=== PATIENT | female | born 1995 | race Caucasian/White ===

== ENCOUNTER → 2017-05-02 | Outpatient (CLI) | payer OTHER ==
--- NOTE | 2017-05-03 08:46 | KCIC ---
Renal ultrasound HISTORY: Polycystic kidney disease COMPARISON: None FINDINGS: Multiple sonographic images of the kidneys and urinary bladder are submitted. Right kidney measured 10.3 x 3.8 x 4.3 cm. Left kidney measured 12 x 6.5 x 5.3 cm, no hydronephrosis. No significant cystic lesion is demonstrated of either kidney. Segments of the right kidney are not as well visualized due to attenuation by soft tissues and bowel gas. Urinary bladder morphology is within normal limits. Left ureteral jet is seen in the urinary bladder lumen during exam, right ureteral jet not seen during the exam. IMPRESSION: 1. There is nonspecific asymmetric enlargement of the left kidney compared with the right, no hydronephrosis. However the right kidney is not as well-visualized in its entirety due to bowel gas and attenuation by soft tissues. Electronically signed by: Josef Barnett MD (05/03/2017 8:43 AM)
== END | disposition home or self-care (01) ==
LOC: KCIC US 14:56
PROVIDERS: ATTEND Family Medicine
DX: Q61.3 Polycystic kidney, unspecified (principal)
CPT/HCPCS: 76770

== ENCOUNTER → 2018-06-12 | Outpatient (CLI) | payer OTHER | END | disposition home or self-care (01) | LOC: KCIC US 15:28 | DX: N28.81 Hypertrophy of kidney (principal); Z82.71 Family history of polycystic kidney | CPT/HCPCS: 76770 ==